=== PATIENT | female | born 1960 | race Caucasian/White ===

== ENCOUNTER → 2020-08-25 13:34 | Outpatient (CLI) | payer BC, SELFPAY ==
--- NOTE | 2020-08-25 13:38 | DI.MRI.S_ITS ---
PROCEDURE: MR LUMBAR SPINE WO/W CON INDICATIONS: Radiculopathy, lumbar region TECHNIQUE: Noncontrast sagittal T1 spin echo and T2 fast spin echo, sagittal STIR, axial T1 and T2 fast spin echo through the lumbar spine. In cases with scoliosis, additional coronal T2 fast spin echo may be performed. After the administration of contrast, sagittal and axial T1 spin echo with fat saturation through the lumbar spine. COMPARISON: None. FINDINGS: Image quality: Excellent. Alignment and curvature: There is trace retrolisthesis of L1 on L2, L2 on L3, L3 on L4, L4 on L5. Marrow: Marrow is of normal overall signal. Mild to moderate reactive endplate changes are present at L2-3, mild L1-L2, L3-4. No acute vertebral body compression fractures. No suspicious marrow enhancement. Spinal cord: Conus medullaris terminates at the L1 level. Visualized spinal cord demonstrates normal signal, without suspicious enhancement. Paraspinous soft tissues: No paravertebral masses or abnormal enhancement. Discs: Moderate to severe desiccation is present throughout the lumbar spine. L1-L2: Mild asymmetric disc bulge with a left-sided prominence. Minimal effacement of the anterior thecal sac is present. No foraminal narrowing. Epidural lipomatosis as well as facet and ligamentum flavum hypertrophy are present. L2-L3: Mild disc bulge with [id number]-ay-[id number] spinal stenosis. Mild bilateral foraminal narrowing with facet and ligamentum flavum hypertrophy. L3-L4: Mild disc bulge with mild spinal stenosis. Moderate bilateral foraminal narrowing, right greater than left with facet and ligamentum flavum hypertrophy. L4-L5: Minimal disc bulge without spinal stenosis. Moderate to severe left and moderate right foraminal narrowing with facet and ligamentum flavum hypertrophy. L5-S1: Mild disc bulge without spinal stenosis. There is severe left and mild right foraminal narrowing with effacement of the exiting left L5 nerve roots. Facet hypertrophy is present. IMPRESSION: 1. Multilevel disc bulges. 2. Overall [id number]-rctsssno spinal stenosis most notable at L2-3 secondary to disc bulge with contributing effect of facet/ligamentum flavum arthropathy as well as epidural lipomatosis. 3. Multilevel foraminal narrowing severe at L5-S1 with slight effacement of the exiting left L5 nerve roots secondary to facet arthropathy. Dictated by: Carolyne Tariq M.D. on 08/25/2020 at 16:22 Approved by: Carolyne Tariq M.D. on 08/25/2020 at 16:27
== END ==
DX: M54.5 Low back pain (principal); M51.16 Intervertebral disc disorders with radiculopathy, lumbar region; M51.17 Intervertebral disc disorders with radiculopathy, lumbosacral region; M48.061 Spinal stenosis, lumbar region without neurogenic claudication; M48.07 Spinal stenosis, lumbosacral region
CPT/HCPCS: 72158

== ENCOUNTER → 2024-09-23 12:40 | Outpatient (CLI) | payer BC, SELFPAY ==
--- NOTE | 2024-09-23 12:41 | DI.MG.S_ITS ---
MM screening mammo implant BI: 09/23/2024. BI-RADS: 2 CLINICAL: 64-year old female for bilateral screening mammogram. Tyrer-Cuzick lifetime risk of 7.7%. Current reported family history of breast cancer: mother. The patient reports testing negative for BRCA gene mutation. The patient has bilateral implants. PRIOR EXAMS Outside films 07/26/2021, 06/13/2020, 05/18/2018, and 05/06/2017. MAMMOGRAPHY TECHNIQUE: 2D and 3D (tomosynthesis) digital mammographic views obtained, with additional images as needed for full coverage. Current study was also evaluated with a Computer Aided Detection (CAD) system. DENSITY B. There are scattered areas of fibroglandular density. IMPLANTS Breast implants present. MAMMOGRAPHY FINDINGS Bilateral: There are no suspicious masses, calcifications, or other findings in the breast. IMPRESSION: * No evidence of malignancy with benign findings. RECOMMENDATIONS Bilateral * Annual screening mammography. OVERALL ASSESSMENT CATEGORY BI-RADS-2: Benign. The [employer] recommends annual screening mammography beginning at age 40 for women with average risk of breast cancer. ELECTRONICALLY SIGNED: Yvette Angulo M.D. on 09/24/2024 at 12:37:49 PM PT Interpreting Station ID: [id number]
== END ==
PROVIDERS: PCP Family Medicine; Referring Provider Family Medicine; Visit Provider Family Medicine
DX: Z12.31 Encounter for screening mammogram for malignant neoplasm of breast (principal); Z80.3 Family history of malignant neoplasm of breast; Z98.82 Breast implant status
CPT/HCPCS: 77063; 77067